=== PATIENT | female | born 1945 | race Caucasian/White ===

== ENCOUNTER → 2018-09-17 07:47 | Outpatient (CLI) | payer MEDICARE, OTHER, SELFPAY ==
--- NOTE | 2018-09-17 | DI.MG.S_ITS ---
BILATERAL DIGITAL SCREENING MAMMOGRAM 3D/2D WITH CAD: 09/17/2018 CLINICAL: Routine screening. Family history of breast cancer. Comparison is made to exams dated: 09/16/2017 mammogram, 12/12/2014 mammogram, and 12/14/2015 mammogram - [facility]. The tissue of both breasts is heterogeneously dense. This may lower the sensitivity of mammography. Current study was also evaluated with a Computer Aided Detection (CAD) system. No significant masses, calcifications, or other findings are seen in either breast. There has been no significant interval change. IMPRESSION: NEGATIVE There is no mammographic evidence of malignancy. A 1 year screening mammogram is recommended. This exam was interpreted at Station ID: [id number]. NOTE: For mammograms, a report in lay terms will be sent to the patient. Approximately 15% of breast malignancies will not be visualized mammographically. In the management of a palpable breast mass, a negative mammogram must not discourage biopsy of a clinically suspicious lesion. Electronically Signed By: Mini jim/raiza:09/17/2018 09:09:17 letter sent: Normal Exam ACR BI-RADS Category 1: Negative 3341F
== END ==
PROVIDERS: Family Provider Family Medicine; PCP Family Medicine; Visit Provider Family Medicine
DX: Z12.31 Encounter for screening mammogram for malignant neoplasm of breast (principal); Z80.3 Family history of malignant neoplasm of breast
CPT/HCPCS: 77063; 77067

== ENCOUNTER → 2018-09-22 11:26 | Outpatient (CLI) | payer MEDICARE, OTHER, SELFPAY ==
--- NOTE | 2018-09-22 | DI.RAD.S_ITS ---
PROCEDURE: XR FOOT LT MIN 3V INDICATIONS: LEFT FOOT PAIN TECHNIQUE: 3 views of the foot were acquired. COMPARISON: None. FINDINGS: Bones: No fractures or dislocations. No suspicious bony lesions. Soft tissues: No tibiotalar joint effusion. Achilles tendon appears normal. IMPRESSION: No trauma. Source of left foot pain is not seen. Dictated by: Moses Joseph M.D. on 09/22/2018 at 12:25 Approved by: Moess Joseph M.D. on 09/22/2018 at 12:25
== END ==
PROVIDERS: Family Provider Family Medicine; PCP Family Medicine; Visit Provider Family Medicine
DX: M79.672 Pain in left foot (principal)
CPT/HCPCS: 73630

== ENCOUNTER → 2018-12-14 09:46 | Outpatient (CLI) | payer MEDICARE, OTHER, SELFPAY | PROVIDERS: Family Provider Family Medicine; PCP Family Medicine; Visit Provider Family Medicine | DX: M81.0 Age-related osteoporosis without current pathological fracture (principal); Z78.0 Asymptomatic menopausal state; Z82.62 Family history of osteoporosis | CPT/HCPCS: 77080 ==

== ENCOUNTER → 2019-05-03 11:04 | Outpatient (CLI) | payer MEDICARE, OTHER, SELFPAY ==
--- NOTE | 2019-05-03 | DI.RAD.S_ITS ---
PROCEDURE: XR LUMBAR SPINE 2-3V INDICATIONS: BACK PAIN TECHNIQUE: 3 views of the lumbar spine were acquired. COMPARISON: [facility], , L-SPINE 2-3 VIEWS, 06/14/2014, 10:04. FINDINGS: Bones: 5 tdr-nxa-dziolen vertebrae are present. There is stable appearance of minimal grade 1 anterolisthesis of L4 on L5. There is also stable levocurvature of the lumbar spine centered at L2-3. No acute compression fractures. Multilevel spondylitic changes of the mid and lower lumbar spine appear slightly progressed compared to prior study. Moderate facet arthrosis. No suspicious bony lesions. Previously reported lucency near the tip of the right L2 transverse process is not visualized. Soft tissues: Overlying bowel gas pattern is normal. No suspicious soft tissue calcifications. IMPRESSION: 1. Lumbar spine without acute osseous abnormalities. 2. Mild interval progression of multilevel lumbar spondylitic changes. 3. Stable appearance of minimal grade 1 anterolisthesis of L4 on L5 as well as mild levocurvature of the lumbar spine centered at L2-3. Dictated by: Scott Eric M.D. on 05/03/2019 at 12:58 Approved by: Scott Eric M.D. on 05/03/2019 at 13:02
== END ==
PROVIDERS: Family Provider Family Medicine; PCP Family Medicine; Visit Provider Family Medicine
DX: M54.5 Low back pain (principal); M47.816 Spondylosis without myelopathy or radiculopathy, lumbar region; G89.29 Other chronic pain
CPT/HCPCS: 72100

== ENCOUNTER 2019-08-11 20:33 | Emergency (ER) | payer MEDICARE, OTHER, SELFPAY ==
[2019-08-11 20:45] VITALS: BP 170/81; PULSE 81; RESP 14; TEMP 38; O2SAT 98; BMI 25.7
--- NOTE | 2019-08-11 21:23 | DI.RAD.S_ITS ---
PROCEDURE: XR CHEST 2V INDICATIONS: cough TECHNIQUE: 2 views of the chest were acquired. COMPARISON: None. FINDINGS: Surgical changes and devices: None. Lungs and pleura: Lungs are clear. No pleural effusions or pneumothorax. Mediastinum: Mediastinal contours are normal. Heart size is normal. Bones and chest wall: No suspicious bony abnormalities. Soft tissues appear unremarkable. IMPRESSION: No acute pulmonary process. Dictated by: Nubia Gould M.D. on 08/11/2019 at 21:44 Approved by: Nubia Gould M.D. on 08/11/2019 at 21:44
--- NOTE | 2019-08-11 21:30 | PC.NURSE ---
To xray per wc.
--- NOTE | 2019-08-11 21:34 | PC.NURSE ---
Returned from xray per wc.
[2019-08-11 21:47] LABS: Influenza A - CEPHEID Flu A NEGATIVE (NEGATIVE); Influenza B - CEPHEID Flu B NEGATIVE (NEGATIVE)
[2019-08-11 22:00] VITALS: BP 140/85; PULSE 82; RESP 20; TEMP 37.7; O2SAT 96
[2019-08-11 23:32] VITALS: BP 167/77; PULSE 77; RESP 16; TEMP 37.3; O2SAT 99
--- NOTE | 2019-08-11 23:34 | PC.NURSE ---
Spoke with pt regarding wait. VS improving.Temp has come down.Pt voices desire to go home. Advised pt will speak with ED provider & the Charge Nurse. Pt is stable.No acute resp distress.Airway is stable.
--- NOTE | 2019-08-11 23:50 | ED.URI ---
HPI - URI/Sore Throat General Chief Complaint: Upper Respiratory Symptoms Stated Complaint: cough, congestion, fever Time Seen by Provider: 08/11/19 22:18 Source: patient Mode of arrival: Ambulatory Limitations: no limitations History of Present Illness HPI Narrative: 73-year-old woman with a history of a hyperlipidemia and osteoporosis presents with 3 days of cough and then 24 hours a fever. She is concerned about guaman virus and presents for testing as recommended by her primary care physician. She describes mild dyspnea, mild hoarseness, no orthopnea, no vomiting, diarrhea, abdominal pain. No recent travel or other exposures outside routine daily living Related Data Home Medications Medication Instructions Recorded Confirmed [CALCIUM] #0 10/17/10 01/28/18 [VITAMIN D] #0 10/17/10 01/28/18 FOLIC ACID/VIT A/VIT B1/VIT 1 tab PO Q DAY #0 05/13/11 01/28/18 (#MULTIVITAMIN) Fish Oil (#SALMON OIL) 1,000 mg PO EVERY OTHER DAY #0 05/13/11 01/28/18 alendronate 10 mg tablet 10 mg PO DAILY 01/28/18 01/28/18 atorvastatin 10 mg tablet 10 mg PO DAILY 01/28/18 01/28/18 Allergies Allergy/AdvReac Type Severity Reaction Status Date / Time codeine [CODEINE] Allergy Severe THROAT Verified 08/11/19 20:48 SWELLING Review of Systems Review of Systems Narrative: All systems reviewed and are unremarkable except as noted in HPI and below Patient History Medical History (Updated 08/12/19 @ 04:11 by Sheri Aguila MD) Hyperlipidemia (Acute) Social History Smoking Status: Never smoker Smoking Status: Never smoker alcohol intake frequency: 0-2 drinks per day Alcohol type: wine Substance Use Type: does not use Exam Narrative Exam Narrative: General: Healthy appearing, in no acute distress. Able to give a complete and coherent history. Well-nourished well-developed HEENT: Moist mucous membranes, normal sclera with reactive pupils, Neck: No JVD, supple Respiratory: Lungs are clear to auscultation, no wheezing no rales no rhonchi. Full and symmetrical air movement Cardiac: Regular rate and rhythm no murmurs no bruits Abdomen: Soft nontender good bowel tones, no flank pain Skin: Warm and dry, no rashes Neurologic: Grossly neurologically intact with no obvious asymmetries or abnormalities Extremities: No trauma, well perfused Psych: Cooperative, appropriate insight and affect Initial Vital Signs Initial Vital Signs: Vital Signs Temperature 100.4 F H 08/11/19 20:45 Pulse Rate 81 08/11/19 20:45 Respiratory Rate 14 08/11/19 20:45 Blood Pressure 170/81 H 08/11/19 20:45 Pulse Oximetry 98 08/11/19 20:45 Course Orders Ordered: ED Orders 08/11/19 21:05 Influenza A & B (PCR) Stat 08/11/19 21:23 Chest [XR chest 2V] Stat Vital Signs Vital signs: Vital Signs - 8 hr 08/11/19 20:45 08/11/19 22:00 08/11/19 23:32 Temperature 100.4 F H 99.8 F H 99.1 F Pulse Rate 81 82 77 Respiratory Rate 14 20 16 Blood Pressure 170/81 H Blood Pressure [Left Arm] 140/85 167/77 H Pulse Oximetry 98 96 99 MDM - URI/Sore Throat Medical Records Attestation: I reviewed the patient's medical records. Lab Data Attestation: I reviewed the patient's lab results. Lab results narrative: Flu a and B are negative. Guaman virus has been ordered Labs: Lab Results 08/11/19 Range/Units 21:05 Influenza A (RT-PCR) Flu a negative (NEGATIVE) Influenza B (RT-PCR) Flu b negative (NEGATIVE) Imaging Data Chest x-ray: Radiologist's Impression: IMPRESSION: No acute pulmonary process. Dictated by: Nubia Gould M.D. on 08/11/2019 at 21:44 MDM Narrative Medical decision making narrative: Upper respiratory infection without signs or symptoms of acute respiratory distress or impending respiratory failure. Recommended self isolation until all symptoms are completely resolved for over 72 hours. Safe for home discharge Discharge Plan Departure Patient Disposition: Home Clinical Impression: Upper respiratory infection Qualifiers: URI type: unspecified viral URI Qualified Code(s): J06.9 - Acute upper respiratory infection, unspecified Discharge Date/Time: 08/12/19 00:05 Instructions: DI for Viral Upper Respiratory Infection -- Adult Activity Restrictions/Additional Instructions: Thank you for coming in tonight I very much appreciate your patience in waiting Your influenza swab is negative. You do not have an obvious pneumonia on your chest x-ray. Your clinical exam suggests a simple viral respiratory infection and I expect he will start feeling better within the next 3-4 days. We have sent a guaman virus test. It will likely take a number of days to return. In the meantime, please try to stay at home to avoid exposing others to what ever virus it is that you have. Make sure that you are using ibuprofen or Tylenol to help with the aches pains and fevers. Feel free to use [id number] cough medicine to control the cough symptoms. I hope you heal quickly Prescriptions: No Action atorvastatin 10 mg tablet 10 mg PO DAILY RF: 0 alendronate 10 mg tablet 10 mg PO DAILY RF: 0 [CALCIUM] Qty: 0 RF: 0 [VITAMIN D] Qty: 0 RF: 0 Fish Oil (#SALMON OIL) 1,000 mg PO EVERY OTHER DAY Qty: 0 RF: 0 FOLIC ACID/VIT A/VIT B1/VIT (#MULTIVITAMIN) 1 tab PO Q DAY Qty: 0 RF: 0 Referrals: Jacoby Jamison MD [Primary Care Provider] -
[2019-08-17 09:00] LABS: COVID19 Sendout Not Detected (Not Detected)
== END 2019-08-12 00:05 | disposition home or self-care (01) ==
PROVIDERS: Emergency Provider Emergency Medicine; Family Provider Family Medicine; PCP Family Medicine
DX: Z03.818 Encounter for observation for suspected exposure to other biological agents ruled out (principal); J06.9 Acute upper respiratory infection, unspecified; E78.5 Hyperlipidemia, unspecified
CPT/HCPCS: 71046; 87502; 99282; 99283; DELETED

== ENCOUNTER → 2020-04-14 07:51 | Outpatient (CLI) | payer MEDICARE, OTHER, SELFPAY ==
--- NOTE | 2020-04-14 | DI.MG.S_ITS ---
BILATERAL DIGITAL SCREENING MAMMOGRAM 3D/2D WITH CAD: 04/14/2020 CLINICAL: Routine screening. Family history of breast cancer. Comparison is made to exams dated: 09/17/2018 mammogram, 09/16/2017 mammogram, and 12/14/2015 mammogram - . The tissue of both breasts is heterogeneously dense. This may lower the sensitivity of mammography. Current study was also evaluated with a Computer Aided Detection (CAD) system. There is a benign calcification in both breasts. No significant masses, calcifications, or other findings are seen in either breast. There has been no significant interval change. IMPRESSION: BENIGN There is no mammographic evidence of malignancy. A 1 year screening mammogram is recommended. This exam was interpreted at Station ID: [id number]. NOTE: For mammograms, a report in lay terms will be sent to the patient. Approximately 15% of breast malignancies will not be visualized mammographically. In the management of a palpable breast mass, a negative mammogram must not discourage biopsy of a clinically suspicious lesion. Electronically Signed By: Darinel Quinonez acr/penrad:04/15/2020 18:24:57 letter sent: Normal Exam ACR BI-RADS Category 2: Benign Finding(s) 3342F
== END ==
PROVIDERS: Family Provider Family Medicine; PCP Family Medicine; Referring Provider Family Medicine; Visit Provider Family Medicine
DX: Z12.31 Encounter for screening mammogram for malignant neoplasm of breast (principal)
CPT/HCPCS: 77063; 77067

== ENCOUNTER → 2020-07-03 09:49 | Outpatient (CLI) | payer MEDICARE, OTHER, SELFPAY ==
--- NOTE | 2020-07-03 | DI.RAD.S_ITS ---
PROCEDURE: XR LUMBAR SPINE 2-3V INDICATIONS: LEFT LOW BACK PAIN TECHNIQUE: 3 views of the lumbar spine were acquired. COMPARISON: [facility], CR, XR LUMBAR SPINE 2-3V, 05/03/2019, 11:17. FINDINGS: Bones: No fracture. Multilevel degenerative endplate sclerosis and spurring. Diffuse facet arthropathy. Grade 1 anterolisthesis of L4 on L5. Diffuse mild to moderate disc space narrowing throughout the lumbar spine. There is levocurvature. Soft tissues: Overlying bowel gas pattern is normal. No suspicious soft tissue calcifications. IMPRESSION: Multilevel spondylosis and facet arthropathy without interval change since 05/03/19 Levocurvature. Dictated by: Nitish Dove M.D. on 07/03/2020 at 11:32 Approved by: Nitish Dove M.D. on 07/03/2020 at 11:33
== END ==
PROVIDERS: Family Provider Family Medicine; PCP Family Medicine; Referring Provider Family Medicine; Visit Provider Family Medicine
DX: M54.5 Low back pain (principal); M47.816 Spondylosis without myelopathy or radiculopathy, lumbar region
CPT/HCPCS: 72100

== ENCOUNTER → 2020-10-31 18:51 | Outpatient (CLI) | payer MEDICARE, OTHER, SELFPAY | PROVIDERS: Family Provider Family Medicine; PCP Family Medicine; Visit Provider Student in an Organized Health Care Education/Training Program | DX: M79.89 Other specified soft tissue disorders (principal) | CPT/HCPCS: 87070; 87075; 87077; 87147; 87186; 87205 ==

== ENCOUNTER → 2021-02-05 14:21 | Outpatient (CLI) | payer MEDICARE, OTHER, SELFPAY ==
--- NOTE | 2021-02-05 | DI.RAD.S_ITS ---
PROCEDURE: XR FOOT LT MIN 3V INDICATIONS: left forefoot pain, redness and swelling TECHNIQUE: 3 views of the foot were acquired. COMPARISON: [facility], CR, XR FOOT LT MIN 3V, 09/22/2018, 11:27. FINDINGS: Bones: No fractures or dislocations. No suspicious bony lesions. Soft tissues: No tibiotalar joint effusion. Achilles tendon appears normal. IMPRESSION: No acute abnormality of the left foot. Dictated by: Darinel Quinonez M.D. on 02/05/2021 at 18:33 Approved by: Darinel Quinonez M.D. on 02/05/2021 at 18:35
== END ==
PROVIDERS: Family Provider Family Medicine; PCP Family Medicine; Referring Provider Family Medicine; Visit Provider Family Medicine
DX: M79.672 Pain in left foot (principal)
CPT/HCPCS: 73630

== ENCOUNTER → 2021-04-17 08:39 | Outpatient (CLI) | payer MEDICARE, OTHER, SELFPAY ==
--- NOTE | 2021-04-17 | DI.MG.S_ITS ---
BILATERAL DIGITAL SCREENING MAMMOGRAM 3D/2D WITH CAD: 04/17/2021 CLINICAL: Routine screening. Family history of breast cancer. Comparison is made to exams dated: 04/14/2020 mammogram, 09/17/2018 mammogram, and 09/16/2017 mammogram - [facility]. The tissue of both breasts is heterogeneously dense. This may lower the sensitivity of mammography. Current study was also evaluated with a Computer Aided Detection (CAD) system. There is a benign calcification in both breasts. No significant masses, calcifications, or other findings are seen in either breast. There has been no significant interval change. IMPRESSION: BENIGN There is no mammographic evidence of malignancy. A 1 year screening mammogram is recommended. This exam was interpreted at Station ID: [id number]. NOTE: For mammograms, a report in lay terms will be sent to the patient. Approximately 15% of breast malignancies will not be visualized mammographically. In the management of a palpable breast mass, a negative mammogram must not discourage biopsy of a clinically suspicious lesion. Electronically Signed By: Kaz kennedy/raiza:04/17/2021 09:00:05 letter sent: Normal Exam ACR BI-RADS Category 2: Benign Finding(s) 3342F
== END ==
PROVIDERS: Family Provider Family Medicine; PCP Family Medicine; Referring Provider Family Medicine; Visit Provider Family Medicine
DX: Z12.31 Encounter for screening mammogram for malignant neoplasm of breast (principal); Z80.3 Family history of malignant neoplasm of breast
CPT/HCPCS: 77063; 77067

== ENCOUNTER → 2021-05-10 09:19 | Outpatient (CLI) | payer MEDICARE, OTHER, SELFPAY ==
--- NOTE | 2021-05-10 | DI.RAD.S_ITS ---
PROCEDURE: XR DEXA AXIAL SKELETON INDICATIONS: Asymptomatic menopausal state COMPARISON: [facility], CR, XR DEXA AXIAL SKELETON, 12/14/2018, 10:16. FINDINGS: This blank DEXA report has been sent in error by the PACS system. The correct and complete report will be forthcoming in 1-2 days. Thank you for your patience and understanding. Dictated by: Nicci Guzmán MD, PhD on 05/10/2021 at 14:37 Approved by: Ncici Guzmán MD, PhD on 05/10/2021 at 14:37
== END ==
PROVIDERS: Family Provider Family Medicine; PCP Family Medicine; Referring Provider Family Medicine; Visit Provider Family Medicine
DX: M81.0 Age-related osteoporosis without current pathological fracture (principal); Z78.0 Asymptomatic menopausal state; Z82.62 Family history of osteoporosis
CPT/HCPCS: 77080

== ENCOUNTER → 2021-09-06 09:37 | Outpatient (CLI) | payer MEDICARE, OTHER, SELFPAY ==
--- NOTE | 2021-09-06 | DI.RAD.S_ITS ---
PROCEDURE: XR WRIST LT MIN 3V INDICATIONS: LEFT WRIST PAIN TECHNIQUE: 4 views of the wrist were acquired. COMPARISON: [facility], , WRIST MINIMUM 3 VIEWS LEFT, 06/03/2008, 15:06. FINDINGS: Bones: Healed fracture deformity of the distal radius. Lucencies within the lunate and triquetrum, which may reflect fibrocystic change. Scaphoid view: Intact. Soft tissues: No suspicious soft tissue calcifications. IMPRESSION: No acute osseous abnormality. Dictated by: Lazaro Dunn M.D. on 09/06/2021 at 10:49 Approved by: Lazaro Dunn M.D. on 09/06/2021 at 10:50
== END ==
PROVIDERS: Family Provider Family Medicine; PCP Family Medicine; Referring Provider Family Medicine; Visit Provider Family Medicine
DX: M25.532 Pain in left wrist (principal)
CPT/HCPCS: 73110

== ENCOUNTER → 2021-09-11 12:05 | Outpatient (CLI) | payer MEDICARE, OTHER, SELFPAY ==
--- NOTE | 2021-09-11 | DI.MRI.S_ITS ---
PROCEDURE: MR HEAD/BRAIN WO/W CON INDICATIONS: Other amnesia TECHNIQUE: Noncontrast axial T1 spin echo, axial T2 fast spin echo, sagittal and axial FLAIR, coronal T2 fast spin echo, axial gradient echo, axial diffusion and ADC through the brain. After the administration of contrast, axial and coronal T1 spin echo with fat saturation through the brain. COMPARISON: None. FINDINGS: Image quality: Excellent. CSF spaces: Basal cisterns are patent. Mild chronic, simple appearing subdural hygromas can be seen, right larger than left, with a maximal thickness of 11 mm. Ventricles are normal in size and shape. Brain: No midline shift. No intracranial bleeds or masses. No abnormal intracranial enhancement. There is cerebral volume loss for age. There is periventricular white matter chronic small vessel ischemic change. The brainstem appears normal. Diffusion-weighted images demonstrate no acute ischemic insults. No chronic ischemic insults. Normal intravascular flow voids are present. Skull and face: Calvarial marrow is normal in signal. Orbits appear normal. Sinuses: Sinuses and mastoids appear clear. IMPRESSION: Brain MRI within normal limits for age, with brain parenchymal volume loss and chronic small vessel ischemic change. Bilateral mild chronic subdural hygromas can be seen. No findings of acute or subacute infarction can be seen. No masses or abnormal enhancement can be seen. Dictated by: Ant Gould M.D. on 09/11/2021 at 12:09 Approved by: Ant Gould M.D. on 09/11/2021 at 12:11
== END ==
PROVIDERS: Family Provider Family Medicine; PCP Family Medicine; Referring Provider Family Medicine; Visit Provider Family Medicine
DX: R41.3 Other amnesia (principal); G96.08 Other cranial cerebrospinal fluid leak
CPT/HCPCS: 70553

== ENCOUNTER → 2021-10-03 07:44 | Outpatient (CLI) | payer MEDICARE, OTHER, SELFPAY ==
--- NOTE | 2021-11-28 08:17 | PM.CARDMON.1 ---
Administrative Nursing Supervisor Report Referral & Results Date Patient Seen: 10/03/21 Requesting provider: Jacoby Jamison Indication: Syncope Duration of monitoring (days): 14 Diary information: There was 1 patient triggered event associated with sinus rhythm Data: Minimum heart rate identified was 50 beats per minute at 03:14 on 10/11/2021 Maximum sinus heart rate was 154 beats per minute at 10:54 on 10/10/2021 Maximum overall heart rate was 190 beats per minute at 17:22 on 10/03/2021 during a run of SVT Less than 1% of identified beats were ventricular or supraventricular ectopic in origin, which would classify them as rare. There were 13 runs of SVT with the fastest being a 9 beat run at a rate of 190 beats per minute, the longest lasting 12 beats at a rate of 114 beats per minute which suggest possible atrial tachycardia rather than true SVT There were no pauses of 3 seconds or longer or episodes of atrial fibrillation identified on this study Impression: Essentially normal 14 day hospital monitor demonstrating very rare very brief runs of SVT but otherwise unremarkable. No etiology for syncope identified on this study
== END ==
PROVIDERS: Family Provider Family Medicine; PCP Family Medicine; Referring Provider Family Medicine; Visit Provider Family Medicine
DX: R55 Syncope and collapse (principal)
CPT/HCPCS: 93246; 93248

== ENCOUNTER → 2021-11-11 08:06 | Outpatient (CLI) | payer MEDICARE, OTHER, SELFPAY ==
--- NOTE | 2021-11-11 08:07 | DI.ECHO.S_ITS ---
[facility] +---------+ : : [address] : : : : [id number] : : : : Phone: [phone]+ Echocardiogram Report + + :Name: GAURAV SANTANA Study Date: 11/11/2021 Height: 63.5 in: :[facility] ReadingLocation: Weight: 145 lb : : Gender: Female BSA: 1.7 m2 : :: 1945 Age: 76 yrs BP: 151/83 mmHg: :Reason For Study: SYNCOPE AND COLLAPSE : :Ordering Physician: CLARE, : :GABRIEL Performed By: Shalonda Seaman : :Referring: GABRIEL SPARKS : + + Interpretation Summary The ejection fraction is estimated to be 55-60%. Diastolic parameters suggest probable normal left ventricular diastolic function and normal filling pressures. The right ventricle is normal in size and function. No significant valvular abnormalities. Unable to estimate PASP. Procedure: A two-dimensional transthoracic echocardiogram with color flow and Doppler was performed. The study quality was technically good. There is no prior echocardiogram noted for this patient. The patient was in sinus rhythm with heart rates between 61-76 bpm during the exam. Left Ventricle: The left ventricle is normal in size and wall thickness. The ejection fraction is estimated to be 55-60%. Diastolic parameters suggest probable normal left ventricular diastolic function and normal filling pressures. Right Ventricle: The right ventricle is normal in size and function. Atria: The left atrial size is normal. Right atrial size is normal. Mitral Valve: The mitral valve leaflets appear mildly thickened, but open well. There is trace mitral regurgitation. Aortic Valve: The aortic valve is trileaflet. The aortic valve opens well. There is no aortic valve stenosis. No aortic regurgitation is present. Tricuspid Valve: The tricuspid valve is normal in structure and function. There is trace tricuspid regurgitation. Pulmonic Valve: The pulmonic valve leaflets are thin and pliable; valve motion is normal. There is mild pulmonic regurgitation. Great Vessels: The aortic root is normal size. The dimensions of the ascending aorta are normal. The IVC is of normal diameter and collapses greater than 50% with a sniff. This suggests a low right atrial pressure of 3 mm Hg. Pericardium/ Pleura There is no pericardial effusion. There is no pleural effusion. MMode/2D Measurements & Calculations LVIDd: 5.3 cm LVOT diam: 2.1 cm LVIDs: 3.9 cm Ao root diam: 3.3 cm FS: 26.7 % asc Aorta Diam: 3.2 cm IVSd: 0.80 cm Ao Arch Diam (Prox Trans): 2.9 cm LVPWd: 0.73 cm LV bone. diameter/BSA (cm/m^2): 3.1 LV sys. diameter/BSA (cm/m^2): 2.3 LA A2 area: 16.2 cm2 RA long axis: 4.7 cm LA A4 area: 17.9 cm2 RA area: 15.6 cm2 LA length (vol): 4.9 cm RA vol: 44.4 ml LA vol: 50.0 ml RA : 26.2 ml/m2 LA vol index: 29.5 ml/m2 IVC diam: 0.86 cm RVD1 (basal): 3.6 cm RVD2 (mid): 2.6 cm TAPSE: 2.4 cm Doppler Measurements & Calculations Ao V2 max: 107.3 cm/sec LVOT Max Alex: 75.7 cm/sec Ao V2 mean: 84.0 cm/sec LV V1 max P.3 mmHg Ao max P.6 mmHg LV V1 VTI: 18.1 cm Ao mean P.1 mmHg BLANCA(I,D): 2.3 cm2 Ao V2 VTI: 25.9 cm BLANCA(V,D): 2.3 cm2 sev ratio: 0.70 BLANCA indexed to BSA (cm^2/m^2): 1.4 MV E max alex: 54.9 cm/sec TR max alex: 225.5 cm/sec MV A max alex: 77.8 cm/sec TR max P.3 mmHg MV E/A: 0.71 PA V2 max: 90.7 cm/sec Med Peak E' Alex: 4.4 cm/sec PA V2 mean: 57.9 cm/sec E/E' med: 12.5 PA mean P.6 mmHg Lat Peak E' Alex: 9.6 cm/sec PA pr(Accel): 24.2 mmHg E/E' lat: 5.7 E/e' average: 9.1 MV dec time: 0.24 sec SV(LVOT): 60.2 ml Reading Physician:01:33 PM
== END ==
PROVIDERS: Family Provider Family Medicine; PCP Family Medicine; Referring Provider Family Medicine; Visit Provider Family Medicine
DX: R55 Syncope and collapse (principal); I37.1 Nonrheumatic pulmonary valve insufficiency
CPT/HCPCS: 93306

== ENCOUNTER → 2022-05-06 11:15 | Outpatient (CLI) | payer MEDICARE, OTHER, SELFPAY ==
--- NOTE | 2022-05-06 | DI.MG.S_ITS ---
BILATERAL DIGITAL SCREENING MAMMOGRAM 3D/2D WITH CAD: 05/06/2022 CLINICAL: Routine screening. Family history of breast cancer. Comparison is made to exams dated: 04/17/2021 mammogram, 04/14/2020 mammogram, 09/17/2018 mammogram, and 09/16/2017 mammogram - [facility]. Both breasts are heterogeneously dense, which may obscure small masses (category c / 51-75% glandular tissue). Current study was also evaluated with a Computer Aided Detection (CAD) system. There is a possible developing asymmetry in the left breast anterior depth medial region seen on the craniocaudal view only. No other significant masses, calcifications, or other findings are seen in either breast. IMPRESSION: INCOMPLETE: NEEDS ADDITIONAL IMAGING EVALUATION The possible developing asymmetry in the left breast is indeterminate. Additional views with possible ultrasound are recommended. Based on the Tyrer Cuzick model (a risk assessment model) the patient's lifetime risk is 6.7% and her 10 year risk is 6.1%. According to the ACR, ACS, and NCCN guidelines, an annual breast MRI exam along with mammogram is recommended if the patient's lifetime risk is 20% or greater. This exam was interpreted at Station ID: [id number]. NOTE: For mammograms, a report in lay terms will be sent to the patient. Approximately 15% of breast malignancies will not be visualized mammographically. In the management of a palpable breast mass, a negative mammogram must not discourage biopsy of a clinically suspicious lesion. Electronically Signed By: Jony Canada M.D. [facility]/:05/06/2022 13:52:37 letter sent: Additional Imaging Needed ACR BI-RADS Category 0: Incomplete 3340F
== END ==
PROVIDERS: Family Provider Family Medicine; PCP Family Medicine; Referring Provider Family Medicine; Visit Provider Family Medicine
DX: Z12.31 Encounter for screening mammogram for malignant neoplasm of breast (principal); Z80.3 Family history of malignant neoplasm of breast
CPT/HCPCS: 77063; 77067

== ENCOUNTER → 2022-06-18 10:13 | Outpatient (CLI) | payer MEDICARE, OTHER, SELFPAY ==
--- NOTE | 2022-06-18 | DI.MG.S_ITS ---
UNILATERAL LEFT DIGITAL DIAGNOSTIC MAMMOGRAM 3D/2D WITH ADDITIONAL VIEWS: 06/18/2022 CLINICAL: Additional evaluation requested from prior study. Comparison is made to exams dated: 05/06/2022 mammogram, 04/17/2021 mammogram, and 04/14/2020 mammogram - [facility]. The left breast is heterogeneously dense, which may obscure small masses (category c / 51-75% glandular tissue). The possible asymmetry in the left breast anterior depth medial region seen on the craniocaudal view only is not seen in additional views. No other significant masses or calcifications are seen in the breast. IMPRESSION: BENIGN The left breast asymmetry seen on the screening mammogram likely respresents superimposed fibroglandular tissue and is benign. There is no mammographic evidence of malignancy. A 1 year screening mammogram is recommended. Based on the Tyrer Cuzick model (a risk assessment model) the patient's lifetime risk is 6.7% and her 10 year risk is 6.1%. According to the ACR, ACS, and NCCN guidelines, an annual breast MRI exam along with mammogram is recommended if the patient's lifetime risk is 20% or greater. This exam was interpreted at Station ID: [id number]. NOTE: For mammograms, a report in lay terms will be sent to the patient. Approximately 15% of breast malignancies will not be visualized mammographically. In the management of a palpable breast mass, a negative mammogram must not discourage biopsy of a clinically suspicious lesion. Electronically Signed By: Mini Fernando M.D. lk/:06/18/2022 10:29:47 letter sent: Normal Exam ACR BI-RADS Category 2: Benign Finding(s) 3342F
== END ==
PROVIDERS: Family Provider Family Medicine; PCP Family Medicine; Referring Provider Family Medicine; Visit Provider Family Medicine
DX: N64.89 Other specified disorders of breast (principal); R92.8 Other abnormal and inconclusive findings on diagnostic imaging of breast
CPT/HCPCS: 77065; G0279

== ENCOUNTER 2023-04-02 09:27 | Emergency (ER) | payer MEDICARE, OTHER, SELFPAY ==
--- NOTE | 2023-04-02 09:32 | DI.RAD.S_ITS ---
PROCEDURE: XR CHEST 1V INDICATIONS: chest pain TECHNIQUE: One view of the chest was acquired. COMPARISON: [facility], CR, XR CHEST 2V, 08/11/2019, 21:18. FINDINGS: Surgical changes and devices: None. Lungs and pleura: Minimal appearance of increased vascularity. Mediastinum: Mediastinal contours appear normal. Heart size is normal. Bones and chest wall: No suspicious bony lesions. Overlying soft tissues appear unremarkable. IMPRESSION: Minimal increased vascularity suggestive of edema. Dictated by: Nubia Gould M.D. on 04/02/2023 at 11:12 Approved by: Nubia Gould M.D. on 04/02/2023 at 11:12
[2023-04-02 09:37] VITALS: BP 177/77; PULSE 80; RESP 18; TEMP 36.2; O2SAT 98; BMI 26.6
--- NOTE | 2023-04-02 09:37 | DI.RAD.S_ITS ---
PROCEDURE: XR SHOULDER RT MIN 2V INDICATIONS: fall, right shoulder pain TECHNIQUE: 3 views of the shoulder were acquired. COMPARISON: None. FINDINGS: Bones: No fractures or dislocations. No suspicious bony lesions. Visualized ribs appear intact. Soft tissues: No suspicious soft tissue calcifications. IMPRESSION: No visualized acute fracture or dislocation. However, if clinical concern and/or pain persist, short interval imaging followup in 7-10 days is recommended, as occult injury cannot be definitively excluded. Dictated by: Nubia Gould M.D. on 04/02/2023 at 11:13 Approved by: Nubia Gould M.D. on 04/02/2023 at 11:13
--- NOTE | 2023-04-02 09:41 | DI.CT.S_ITS ---
PROCEDURE: CT HEAD/BRAIN WO CON INDICATIONS: syncope, dizziness, dementia TECHNIQUE: Noncontrast 4.5 mm thick angled axial sections acquired from the foramen magnum to the vertex, with coronal and sagittal reformats. For radiation dose reduction, the following was used: automated exposure control, adjustment of mA and/or kV according to patient size. COMPARISON: MR, MR HEAD/BRAIN WO/W CON, 09/11/2021, 12:24. [facility], CT, CT ANGIO HEAD AND NECK, 04/02/2023, 10:16. FINDINGS: Image quality: Excellent. CSF spaces: Basal cisterns are patent. No extra-axial fluid collections. The ventricles are symmetric in size and shape. Brain: No intracranial bleeds or masses. Low-attenuation bilateral subdural fluid collections are present slightly more prominent on the right. These are unchanged compared to prior exam and consistent with chronic subdural hygromas. No acute hemorrhage. There is cerebral volume loss for age, with resultant ventricular and sulcal prominence. There are periventricular and deep white matter chronic small vessel ischemic changes. There is intracranial internal carotid artery atherosclerosis. Skull and face: Calvarium and visualized facial bones appear intact, without suspicious lesions. Sinuses: Visualized sinuses and mastoids are clear. IMPRESSION: 1. No acute intracranial process. 2. Moderate atrophy and chronic microvascular ischemic changes. Dictated by: Nubia Gould M.D. on 04/02/2023 at 11:09 Approved by: Nubia Gould M.D. on 04/02/2023 at 11:12
--- NOTE | 2023-04-02 09:41 | DI.CT.S_ITS ---
PROCEDURE: CT ANGIO HEAD AND NECK INDICATIONS: syncope, dizziness, dementia TECHNIQUE: After the administration of intravenous contrast, 1 mm thick sections acquired from the aortic arch through the [place] of [place]. 3-dimensional wjkgatq-ovqrtzxmp-hseobwqmof (MIP) and/or volume rendering reformats were acquired of the central intracranial vasculature and neck separately. For radiation dose reduction, the following was used: automated exposure control, adjustment of mA and/or kV according to patient size. COMPARISON: [facility], CT, CT HEAD/BRAIN WO CON, 04/02/2023, 10:16. FINDINGS: Image quality: Diagnostic. BRAIN: Please see separately dictated CT brain report of 04/02/2023. HEAD CT ANGIOGRAPHY: Anterior circulation: Intracranial internal carotid arteries are normal in size and flow. The flow within the paired anterior cerebral arteries is normal and symmetric. The flow within the middle cerebral arteries is normal and symmetric. The anterior communicating artery is seen. No aneurysms are seen. Posterior circulation: There is a slight right vertebral artery dominance. Visualized portions of the vertebral arteries demonstrate normal caliber, and join to form a normal appearing basilar artery. Flow within the posterior cerebral arteries is normal and symmetric. No aneurysms are seen. NECK CT ANGIOGRAPHY: Carotid system: The great vessels demonstrate a conventional anatomy as they arise from the aortic arch. The origins of the common carotid arteries appear patent. The common carotid arteries demonstrate normal caliber and courses. The bifurcation regions are both widely patent. The internal carotid arteries demonstrate normal calibers and courses. Posterior circulation: The origins of the vertebral arteries both appear widely patent. The more superior extracranial portions of both vertebral arteries also demonstrate normal courses and calibers. They join to form a normal appearing basilar artery. Soft tissues: Low-attenuation foci are present within the thyroid bilaterally. No priors are available for comparison. Bones: No suspicious bony lesions. Visualized cervical spine appears normally aligned. IMPRESSION: No areas of hemodynamically significant stenosis, vascular occlusion or aneurysmal dilation within the anterior circulation. No areas of hemodynamically significant stenosis, vascular occlusion or aneurysmal dilation within the posterior circulation. No areas of hemodynamically significant stenosis, vascular occlusion or aneurysmal dilation within the neck vasculature. Low-attenuation thyroid ultrasound foci without priors for comparison. Thyroid ultrasound may be obtained on a nonemergent basis for further evaluation as clinically indicated. Any quantitative measurements of stenosis were performed using NASCET criteria. Dictated by: Nubia Gould M.D. on 04/02/2023 at 11:16 Approved by: Nubia Gould M.D. on 04/02/2023 at 11:23
[2023-04-02 09:56] LABS: Add Manual Diff / Slide Review NO; Basophils Absolute Auto 100 /uL (0-100); Basophils Percent Auto 0.6 % (0-2); Eosinophils Absolute Auto 0 /uL (0-450); Eosinophils Percent Auto 0.4 % (2-4); Hematocrit 44.1 % (36-46); Hemoglobin 14.8 g/dL (12.0-16.0); Lymphocytes Absolute Auto 900 /uL (1100-4500); Lymphocytes Percent Auto 9.8 % (25-40); Mean Corpuscular HGB Conc 33.6 % (30-36); Mean Corpuscular Hemoglobin 32.7 PG (26-34); Mean Corpuscular Volume 97.4 fL (80-100); Monocytes Absolute Auto 700 /uL (0-900); Monocytes Percent Auto 7.2 % (3-14); Neutrophils Absolute Auto 7900 /uL (1500-7000); Platelet Count 290 X10^3/uL (150-400); Red Blood Cell Count 4.52 X10^6/uL (4.0-5.2); White Blood Cell Count 9.6 X10^3/uL (4.5-11.0)
[2023-04-02 10:03] LABS: Prothrombin Time 11.1 SECONDS (10.1-12.7)
[2023-04-02 10:05] LABS: Alanine Aminotransferase 23 IU/L (<35); Albumin Globulin Ratio 1.4 (1.0-2.8); Alkaline Phosphatase 86 U/L (38-126); Aspartate Aminotransferase 28 IU/L (14-36); BUN Creatinine Ratio 34.8 (6-22); Bilirubin Total 0.4 mg/dL (0.2-1.3); Blood Urea Nitrogen 23 mg/dL (7-17); Calcium 9.1 mg/dL (8.4-10.2); Carbon Dioxide 30 mmol/L (22-32); Chloride 101 mmol/L (98-107); Creatine Kinase 74 U/L (30-135); Estimated Glomerular Filt Rate > 60 mL/min (>60); Globulin 2.8 g/dL (1.7-4.1); Glucose 104 mg/dL (80-110); HEMOLYSIS < 15 (0-50); Lipase 62 U/L (23-300); Magnesium 2.2 mg/dL (1.6-2.3); PTT Partial Thromboplastin Tim 30 SECONDS (26-36); Potassium 4.6 mmol/L (3.4-5.1); Sodium 137 mmol/L (137-145); Total Protein 6.8 g/dL (6.3-8.2)
--- NOTE | 2023-04-02 10:13 | DI.CT.S_ITS ---
PROCEDURE: CT CERVICAL SPINE WO CON INDICATIONS: Fall/injury TECHNIQUE: Noncontrast 3 mm thick sections acquired from the skull base to the T4 level. Sagittal and coronal reformats were then constructed. For radiation dose reduction, the following was used: automated exposure control, adjustment of mA and/or kV according to patient size. COMPARISON: None. FINDINGS: Image quality: Excellent. Bones: No fractures or dislocations. Visualized superior ribs are intact. Multilevel degenerative changes. Soft tissues: Prevertebral soft tissues are normal in thickness. No paravertebral hematomas. No apical pneumothoraces. IMPRESSION: No visualized fracture. Dictated by: Nubia Gould M.D. on 04/02/2023 at 11:13 Approved by: Nubia Gould M.D. on 04/02/2023 at 11:15
[2023-04-02 10:16] LABS: Troponin I < 0.012 ng/mL (0.01-0.034)
--- NOTE | 2023-04-02 10:26 | ED.SYNCOPE ---
HPI - Syncope General Chief Complaint: Syncope Stated Complaint: sent by [facility], fall T-1 shoulder injury, fainting Time Seen by Provider: 04/02/23 10:06 Source: patient and family Mode of arrival: Ambulatory Limitations: no limitations Related Data Home Medications Medication Instructions Recorded Confirmed [CALCIUM] ##0 10/17/10 10/31/20 [VITAMIN D] ##0 10/17/10 10/31/20 FOLIC ACID/VIT A/VIT B1/VIT 1 tab PO Q DAY ##0 05/13/11 10/31/20 (#MULTIVITAMIN) Fish Oil (#SALMON OIL) 1,000 mg PO EVERY OTHER DAY ##0 05/13/11 10/31/20 alendronate 10 mg tablet 10 mg PO DAILY 01/28/18 10/31/20 atorvastatin 10 mg tablet 10 mg PO DAILY 01/28/18 10/31/20 Allergies Allergy/AdvReac Type Severity Reaction Status Date / Time codeine [CODEINE] Allergy Severe THROAT Verified 10/31/20 18:13 SWELLING Patient History Medical History Hyperlipidemia Social History Smoking Status: Never smoker Smoking Status: Never smoker alcohol intake frequency: 0-2 drinks per day Alcohol type: wine Substance Use Type: does not use Exam Initial Vital Signs Initial Vital Signs: Vital Signs Temperature 97.2 F L 04/02/23 09:37 Pulse Rate 80 04/02/23 09:37 Respiratory Rate 18 04/02/23 09:37 Blood Pressure 177/77 H 04/02/23 09:37 Pulse Oximetry 98 04/02/23 09:37 Oxygen Delivery Method Room Air 04/02/23 09:37 Course Orders Ordered: ED Orders 04/02/23 09:32 XR chest 1V Stat EKG-12 Lead Stat 04/02/23 09:37 XR shoulder RT min 2V Stat 04/02/23 09:41 CT angio head and neck Stat CT head/brain wo con Stat 04/02/23 09:46 Complete Blood Count AUTO DIFF Stat Comprehensive Metabolic Panel Stat Lipase Stat Magnesium Stat PTT Partial Thromboplastin [place] Stat Prothrombin Time INR Stat Troponin & CK Cardiac Panel Stat 04/02/23 10:13 CT cervical spine wo con Stat Discontinued Medications Aspirin (Aspirin 81 Mg Chew Tab) 324 mg PO NOW ONE Stop: 04/02/23 09:33 Vital Signs Vital signs: Vital Signs - 8 hr 04/02/23 09:37 Temperature 97.2 F L Pulse Rate 80 Respiratory Rate 18 Blood Pressure 177/77 H Pulse Oximetry 98 Oxygen Delivery Method Room Air MDM - Syncope Lab Data 04/02/23 09:46 04/02/23 09:46 Labs: Lab Results 04/02/23 Range/Units 09:46 WBC 9.6 (4.5-11.0) X10^3/uL RBC 4.52 (4.0-5.2) X10^6/uL Hgb 14.8 (12.0-16.0) g/dL Hct 44.1 (36-46) % MCV 97.4 (80-100) fL MCH 32.7 (26-34) PG MCHC 33.6 (30-36) % RDW 14.0 (11.6-14.8) % Plt Count 290 (150-400) X10^3/uL Neut % (Auto) 82.0 H (50-75) % Lymph % (Auto) 9.8 L (25-40) % [place] % (Auto) 7.2 (3-14) % Eos % (Auto) 0.4 L (2-4) % Baso % (Auto) 0.6 (0-2) % Neut # (Auto) 7900 H (9845-9583) /uL Lymph # (Auto) 900 L (8621-7284) /uL [place] # (Auto) 700 (0-900) /uL Eos # (Auto) 0 (0-450) /uL Baso # (Auto) 100 (0-100) /uL PT 11.1 (10.1-12.7) SECONDS INR 1.0 (0.9-1.3) APTT 30 (26-36) SECONDS Sodium 137 (137-145) mmol/L Potassium 4.6 (3.4-5.1) mmol/L Chloride 101 (98-107) mmol/L Carbon Dioxide 30 (22-32) mmol/L BUN 23 H (7-17) mg/dL Creatinine 0.66 (0.52-1.04) mg/dL Estimated GFR > 60 (>60) mL/min BUN/Creatinine Ratio 34.8 H (6-22) Glucose 104 (80-110) mg/dL Calcium 9.1 (8.4-10.2) mg/dL Magnesium 2.2 (1.6-2.3) mg/dL Total Bilirubin 0.4 (0.2-1.3) mg/dL AST 28 (14-36) IU/L ALT 23 (<35) IU/L Alkaline Phosphatase 86 (38-126) U/L Total Creatine Kinase 74 (30-135) U/L Troponin I < 0.012 (0.01-0.034) ng/mL Total Protein 6.8 (6.3-8.2) g/dL Albumin 4.0 (3.5-5.0) g/dL Globulin 2.8 (1.7-4.1) g/dL Albumin/Globulin Ratio 1.4 (1.0-2.8) Lipase 62 (23-300) U/L Discharge Plan Departure Prescriptions: No Action atorvastatin 10 mg tablet 10 mg PO DAILY alendronate 10 mg tablet 10 mg PO DAILY [CALCIUM] Qty: 0 [VITAMIN D] Qty: 0 Fish Oil (#SALMON OIL) 1,000 mg PO EVERY OTHER DAY Qty: 0 FOLIC ACID/VIT A/VIT B1/VIT (#MULTIVITAMIN) 1 tab PO Q DAY Qty: 0 Referrals: Jacoby Jamison MD [Primary Care Provider] -
--- NOTE | 2023-04-02 10:30 | ED.FALL ---
HPI - Fall General Chief Complaint: Syncope Stated Complaint: sent by [facility], fall T-1 shoulder injury, fainting Time Seen by Provider: 04/02/23 10:06 Source: patient and family Mode of arrival: Ambulatory History of Present Illness HPI Narrative: Patient is sent here from walk-in clinic for pain/injury to the right shoulder/nausea/dizziness. Patient here with . Patient has been seen by primary care Dr. Jacoby Jamison yesterday for syncopal episodes that lasted less than 30 seconds, 3 times in the past 1 year. He is going to set her up for carotid Doppler. Patient had Zio patch done in the last year for this same complaints of dizziness and syncope and it was reviewed and few episodes of SVT. Otherwise normal study. Patient and state last night they were eating dinner, she had 2 glasses of wine which is not unusual. She got up and had no problems washing the dishes. About 30 minutes later she lost her balance and broke most of the fall but she did hit her right shoulder against the refrigerator. No loss of consciousness. Denies hitting her head. Shortly afterwards she was nauseous and dizzy. She does not recall this episode. However states that is not uncommon as she does have problems with short-term memory. There was no seizure activity. No recent illness no nausea vomiting diarrhea prior to this. No black or bloody stools. No recent illness. No chest pain or palpitations. No headache. When she fell, states, originally she was crying and then she was giggling and laughing Related Data Home Medications Medication Instructions Recorded Confirmed [CALCIUM] ##0 10/17/10 10/31/20 [VITAMIN D] ##0 10/17/10 10/31/20 FOLIC ACID/VIT A/VIT B1/VIT 1 tab PO Q DAY ##0 05/13/11 10/31/20 (#MULTIVITAMIN) Fish Oil (#SALMON OIL) 1,000 mg PO EVERY OTHER DAY ##0 05/13/11 10/31/20 alendronate 10 mg tablet 10 mg PO DAILY 01/28/18 10/31/20 atorvastatin 10 mg tablet 10 mg PO DAILY 01/28/18 10/31/20 Allergies Allergy/AdvReac Type Severity Reaction Status Date / Time codeine [CODEINE] Allergy Severe THROAT Verified 06/02/21 18:13 SWELLING Review of Systems Review of Systems Narrative: GENERAL: negative chills, fatigue, malaise, fever, sweats. HEENT: negative sinus pain, ear pain, sore throat RESPIRATORY: negative dyspnea, cough CARDIOVASCULAR: negative chest pain, palpitations GASTROINTESTINAL: Positive nausea, negative vomiting, abdominal pain : negative dysuria, frequency, hematuria MUSCULOSKELETAL: Because muscle or bony pain SKIN: negative rash, skin lesions NEUROLOGIC: negative weakness, numbness, positive dizzy ROS Unobtainable: All systems reviewed & are unremarkable except as noted in HPI and below Patient History Medical History Hyperlipidemia Social History Smoking Status: Never smoker Smoking Status: Never smoker alcohol intake frequency: 0-2 drinks per day Alcohol type: wine Substance Use Type: does not use Exam Narrative Exam Narrative: GENERAL: in no distress, not toxic not dyspneic HEAD: Normocephalic. Nontender scalp and skull and face. No skin injury or bruising seen EYES: Pupils equal round ENT: Mucous membranes moist. NECK: Trachea midline. No midline tenderness or step-off of the cervical thoracic or lumbar spine, no carotid bruit CARDIOVASCULAR: Regular rate and rhythm RESPIRATORY: Clear to auscultation. Breath sounds equal bilaterally. No wheezes, rales, or rhonchi. GASTROINTESTINAL: Abdomen soft, non-tender EXTREMITIES: No gross deformities. Examination right upper extremity mild tenderness posterior shoulder with small bruise. However able to bring hand above her head and cross midline and touch her left shoulder. Strong therapeutic support staff and radial pulse and light touch and 2 fingers and thumb, brisk cap refills BACK: No flank tenderness. NEURO: Patient awake alert oriented x3, does not remember the event. Clear speech no facial droop fast exam is negative. 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 Negative pronator drift. SKIN: Warm and dry PSYCH: Not anxious, is cooperative Initial Vital Signs Initial Vital Signs: Vital Signs Temperature 97.2 F L 04/02/23 09:37 Pulse Rate 80 04/02/23 09:37 Respiratory Rate 18 04/02/23 09:37 Blood Pressure 177/77 H 04/02/23 09:37 Pulse Oximetry 98 04/02/23 09:37 Oxygen Delivery Method Room Air 04/02/23 09:37 Course Orders Ordered: Discontinued Medications Aspirin (Aspirin 81 Mg Chew Tab) 324 mg PO NOW ONE Stop: 04/02/23 09:33 Last Admin: 04/02/23 10:46 Dose: Not Given Documented By: LAYNE Sodium Chloride (Normal Saline 0.9%) 500 mls @ 1,000 mls/hr IV BOLUS ONE Stop: 04/02/23 11:06 Last Infusion: 04/02/23 11:23 Dose: Infused Documented By: Admin: 04/02/23 10:45 Dose: 1,000 mls/hr Documented By: LAYNE Vital Signs Vital signs: Vital Signs - 8 hr 04/02/23 09:37 04/02/23 12:28 Temperature 97.2 F L Pulse Rate 80 68 Respiratory Rate 18 16 Blood Pressure 177/77 H 145/95 H Pulse Oximetry 98 98 Oxygen Delivery Method Room Air Room Air MDM - Fall Lab Data 04/02/23 09:46 04/02/23 09:46 Labs: Lab Results 04/02/23 Range/Units 09:46 WBC 9.6 (4.5-11.0) X10^3/uL RBC 4.52 (4.0-5.2) X10^6/uL Hgb 14.8 (12.0-16.0) g/dL Hct 44.1 (36-46) % MCV 97.4 (80-100) fL MCH 32.7 (26-34) PG MCHC 33.6 (30-36) % RDW 14.0 (11.6-14.8) % Plt Count 290 (150-400) X10^3/uL Neut % (Auto) 82.0 H (50-75) % Lymph % (Auto) 9.8 L (25-40) % Valencia % (Auto) 7.2 (3-14) % Eos % (Auto) 0.4 L (2-4) % Baso % (Auto) 0.6 (0-2) % Neut # (Auto) 7900 H (3352-7691) /uL Lymph # (Auto) 900 L (5736-9721) /uL Valencia # (Auto) 700 (0-900) /uL Eos # (Auto) 0 (0-450) /uL Baso # (Auto) 100 (0-100) /uL PT 11.1 (10.1-12.7) SECONDS INR 1.0 (0.9-1.3) APTT 30 (26-36) SECONDS Sodium 137 (137-145) mmol/L Potassium 4.6 (3.4-5.1) mmol/L Chloride 101 (98-107) mmol/L Carbon Dioxide 30 (22-32) mmol/L BUN 23 H (7-17) mg/dL Creatinine 0.66 (0.52-1.04) mg/dL Estimated GFR > 60 (>60) mL/min BUN/Creatinine Ratio 34.8 H (6-22) Glucose 104 (80-110) mg/dL Calcium 9.1 (8.4-10.2) mg/dL Magnesium 2.2 (1.6-2.3) mg/dL Total Bilirubin 0.4 (0.2-1.3) mg/dL AST 28 (14-36) IU/L ALT 23 (<35) IU/L Alkaline Phosphatase 86 (38-126) U/L Total Creatine Kinase 74 (30-135) U/L Troponin I < 0.012 (0.01-0.034) ng/mL Total Protein 6.8 (6.3-8.2) g/dL Albumin 4.0 (3.5-5.0) g/dL Globulin 2.8 (1.7-4.1) g/dL Albumin/Globulin Ratio 1.4 (1.0-2.8) Lipase 62 (23-300) U/L Imaging Data Chest x-ray: Radiologist's Impression: [address] [address] XRay Report Signed Patient: Ania Dupree MR#: [id number] : 1945 Acct:[id number] Age/Sex: 77 / F Date of Service: 04/02/23 Loc: ED Accession Number: [id number] Procedure: XR chest 1V Ordering Provider: Albaro Keller MD PROCEDURE: XR CHEST 1V INDICATIONS: chest pain TECHNIQUE: One view of the chest was acquired. COMPARISON: [facility], CR, XR CHEST 2V, 08/11/2019, 21:18. FINDINGS: Surgical changes and devices: None. Lungs and pleura: Minimal appearance of increased vascularity. Mediastinum: Mediastinal contours appear normal. Heart size is normal. Bones and chest wall: No suspicious bony lesions. Overlying soft tissues appear unremarkable. IMPRESSION: Minimal increased vascularity suggestive of edema. Dictated by: Nubia Gould M.D. on 04/02/2023 at 11:12 Approved by: Nubia Gould M.D. on 04/02/2023 at 11:12 CT scan - head: Radiologist's Impression: [address] [address] [address] Scan Report Signed Patient: Ania Dupree MR#: [id number] : 1945 Acct:[id number] Age/Sex: 77 / F Date of Service: 04/02/23 Loc: ED Accession Number: [id number] Procedure: CT head/brain wo con Ordering Provider: Albaro Keller MD PROCEDURE: CT HEAD/BRAIN WO CON INDICATIONS: syncope, dizziness, dementia TECHNIQUE: Noncontrast 4.5 mm thick angled axial sections acquired from the foramen magnum to the vertex, with coronal and sagittal reformats. For radiation dose reduction, the following was used: automated exposure control, adjustment of mA and/or kV according to patient size. COMPARISON: MR, MR HEAD/BRAIN WO/W CON, 09/11/2021, 12:24. [facility], CT, CT ANGIO HEAD AND NECK, 04/02/2023, 10:16. FINDINGS: Image quality: Excellent. CSF spaces: Basal cisterns are patent. No extra-axial fluid collections. The ventricles are symmetric in size and shape. Brain: No intracranial bleeds or masses. Low-attenuation bilateral subdural fluid collections are present slightly more prominent on the right. These are unchanged compared to prior exam and consistent with chronic subdural hygromas. No acute hemorrhage. There is cerebral volume loss for age, with resultant ventricular and sulcal prominence. There are periventricular and deep white matter chronic small vessel ischemic changes. There is intracranial internal carotid artery atherosclerosis. Skull and face: Calvarium and visualized facial bones appear intact, without suspicious lesions. Sinuses: Visualized sinuses and mastoids are clear. IMPRESSION: 1. No acute intracranial process. 2. Moderate atrophy and chronic microvascular ischemic changes. Dictated by: Nubia Gould M.D. on 04/02/2023 at 11:09 Approved by: Nubia Gould M.D. on 04/02/2023 at 11:12 CT - cervical spine: Radiologist's Impression: [address] [address] [address] Scan Report Signed Patient: Ania Dupree MR#: [id number] : 1945 Acct:[id number] Age/Sex: 77 / F Date of Service: 04/02/23 Loc: ED Accession Number: [id number] Procedure: CT cervical spine wo con Ordering Provider: Albaro Keller MD PROCEDURE: CT CERVICAL SPINE WO CON INDICATIONS: Fall/injury TECHNIQUE: Noncontrast 3 mm thick sections acquired from the skull base to the T4 level. Sagittal and coronal reformats were then constructed. For radiation dose reduction, the following was used: automated exposure control, adjustment of mA and/or kV according to patient size. COMPARISON: None. FINDINGS: Image quality: Excellent. Bones: No fractures or dislocations. Visualized superior ribs are intact. Multilevel degenerative changes. Soft tissues: Prevertebral soft tissues are normal in thickness. No paravertebral hematomas. No apical pneumothoraces. IMPRESSION: No visualized fracture. Dictated by: Nubia Gould M.D. on 04/02/2023 at 11:13 Approved by: Nubia Gould M.D. on 04/02/2023 at 11:15 CTA - brain/neck: Radiologist's Impression: [address] [address] [address] Scan Report Signed Patient: Ania Dupree MR#: [id number] : 1945 Acct:[id number] Age/Sex: 77 / F Date of Service: 04/02/23 Loc: ED Accession Number: [id number] Procedure: CT angio head and neck Ordering Provider: Albaro Keller MD PROCEDURE: CT ANGIO HEAD AND NECK INDICATIONS: syncope, dizziness, dementia TECHNIQUE: After the administration of intravenous contrast, 1 mm thick sections acquired from the aortic arch through the [place] of [place]. 3-dimensional pdczaaz-nmmijmmsq-zezztyokjo (MIP) and/or volume rendering reformats were acquired of the central intracranial vasculature and neck separately. For radiation dose reduction, the following was used: automated exposure control, adjustment of mA and/or kV according to patient size. COMPARISON: [facility], CT, CT HEAD/BRAIN WO CON, 04/02/2023, 10:16. FINDINGS: Image quality: Diagnostic. BRAIN: Please see separately dictated CT brain report of 04/02/2023. HEAD CT ANGIOGRAPHY: Anterior circulation: Intracranial internal carotid arteries are normal in size and flow. The flow within the paired anterior cerebral arteries is normal and symmetric. The flow within the middle cerebral arteries is normal and symmetric. The anterior communicating artery is seen. No aneurysms are seen. Posterior circulation: There is a slight right vertebral artery dominance. Visualized portions of the vertebral arteries demonstrate normal caliber, and join to form a normal appearing basilar artery. Flow within the posterior cerebral arteries is normal and symmetric. No aneurysms are seen. NECK CT ANGIOGRAPHY: Carotid system: The great vessels demonstrate a conventional anatomy as they arise from the aortic arch. The origins of the common carotid arteries appear patent. The common carotid arteries demonstrate normal caliber and courses. The bifurcation regions are both widely patent. The internal carotid arteries demonstrate normal calibers and courses. Posterior circulation: The origins of the vertebral arteries both appear widely patent. The more superior extracranial portions of both vertebral arteries also demonstrate normal courses and calibers. They join to form a normal appearing basilar artery. Soft tissues: Low-attenuation foci are present within the thyroid bilaterally. No priors are available for comparison. Bones: No suspicious bony lesions. Visualized cervical spine appears normally aligned. IMPRESSION: No areas of hemodynamically significant stenosis, vascular occlusion or aneurysmal dilation within the anterior circulation. No areas of hemodynamically significant stenosis, vascular occlusion or aneurysmal dilation within the posterior circulation. No areas of hemodynamically significant stenosis, vascular occlusion or aneurysmal dilation within the neck vasculature. Low-attenuation thyroid ultrasound foci without priors for comparison. Thyroid ultrasound may be obtained on a nonemergent basis for further evaluation as clinically indicated. Any quantitative measurements of stenosis were performed using NASCET criteria. Dictated by: Nubia Gould M.D. on 04/02/2023 at 11:16 Approved by: Nubia Gould M.D. on 04/02/2023 at 11:23 Extremity x-ray #1: Radiologist's Impression: [address] [address] XRay Report Signed Patient: Ania Dupree MR#: [id number] : 1945 Acct:[id number] Age/Sex: 77 / F Date of Service: 04/02/23 Loc: ED Accession Number: [id number] Procedure: XR shoulder RT min 2V Ordering Provider: Albaro Keller MD PROCEDURE: XR SHOULDER RT MIN 2V INDICATIONS: fall, right shoulder pain TECHNIQUE: 3 views of the shoulder were acquired. COMPARISON: None. FINDINGS: Bones: No fractures or dislocations. No suspicious bony lesions. Visualized ribs appear intact. Soft tissues: No suspicious soft tissue calcifications. IMPRESSION: No visualized acute fracture or dislocation. However, if clinical concern and/or pain persist, short interval imaging followup in 7-10 days is recommended, as occult injury cannot be definitively excluded. Dictated by: Nubia Gould M.D. on 04/02/2023 at 11:13 Approved by: Nubia Gould M.D. on 04/02/2023 at 11:13 [facility] Narrative Medical decision making narrative: Patient is sent here from walk-in clinic for pain/injury to the right shoulder/nausea/dizziness. Patient here with . Patient has been seen by primary care Dr. Jacoby Jamison yesterday for syncopal episodes that lasted less than 30 seconds, 3 times in the past 1 year. He is going to set her up for carotid Doppler. Patient had Zio patch done in the last year for this same complaints of dizziness and syncope and it was reviewed and few episodes of SVT. Otherwise normal study. Patient and state last night they were eating dinner, she had 2 glasses of wine which is not unusual. She got up and had no problems washing the dishes. About 30 minutes later she lost her balance and broke most of the fall but she did hit her right shoulder against the refrigerator. No loss of consciousness. Denies hitting her head. Shortly afterwards she was nauseous and dizzy. She does not recall this episode. However states that is not uncommon as she does have problems with short-term memory. There was no seizure activity. No recent illness no nausea vomiting diarrhea prior to this. No black or bloody stools. No recent illness. No chest pain or palpitations. No headache. When she fell, states, originally she was crying and then she was giggling and laughing After history and exam CBC CMP EKG CT head CT angiogram head and neck x-ray right shoulder normal saline magnesium troponin CT cervical spine [facility] CC: Fall/shoulder pain Complicating co-morbidities: History of syncope Data collected from: Patient and Medical records reviewed: Walk-in clinic note just prior to arrival Differential considered: Includes but not limited to arrhythmia cardiac valvular disease dehydration alcohol intoxication dehydration Exam documented above, pertinent findings include: Shoulder bruising Lab Test results independently reviewed as above. Pertinent findings: WBC 9.6 hemoglobin 14.8 INR 1.0 sodium 137 potassium 4.6 BUN 23 creatinine 0.66 GFR greater than 60 AST 28 ALT 23 troponin less than 0.012 Independently reviewed EKG normal sinus rhythm normal EKG rate [address] elevation or depression Imaging studies independently reviewed: Chest x-ray no acute finding CT head no acute finding CT angio head and neck no acute finding CT cervical spine no acute finding Consultations: 12:22 p.m.. Spoke primary care on-call for dr jamison, I spoke with Dr. Brunson, patient does not need to be admitted today. She can be followed up closely this week with the office. They will add any blood test to the blood that is in the lab today. Patient does not need to have carotid Dopplers done as CT angiogram was done today and is reassuring. No addition medications needed. Treatments: Normal saline Re-evaluations: .. 12:24 p.m. Updated patient and results. At this time they are reassuring. Laboratory studies and imaging are reassuring. Patient asymptomatic at this time. Her source of losing balance yesterday uncertain. She had no prevent symptoms. Likely not due to alcohol consumption. Return precautions reviewed with patient. Nontoxic at discharge. I did review with primary care on-call regarding any additional tests or follow up. Return precautions were reviewed with patient and . Not toxic at discharge. They desire discharge home Discussion: Appropriate for discharge home. Exam and laboratory studies and imaging are reassuring. I did review with primary care on-call for any further testing or laboratory studies or changes in disposition. He would like patient to be discharged home and follow up with Dr. Jamison. Any laboratory studies or imaging will be further managed by the office setting. Diagnosis: Fall Discharge Plan Departure Patient Disposition: Home Clinical Impression: Fall Qualifiers: Encounter type: initial encounter Qualified Code(s): W19.XXXA - Unspecified fall, initial encounter Contusion of right shoulder Qualifiers: Encounter type: initial encounter Qualified Code(s): S40.011A - Contusion of right shoulder, initial encounter Instructions: Exercises to Help Prevent Falls, DI for Contusion Activity Restrictions/Additional Instructions: See your family doctor as scheduled. Today's laboratory studies and radiographs and CT scans and x-rays are reassuring. Dr Brunson was on-call and will communicate today's visit and findings with your primary care regarding to add any laboratory studies in the blood collection we have already. Please call the office and confirmed about any need for carotid Doppler of your neck. Return if worse if any questions or concerns. Prescriptions: No Action atorvastatin 10 mg tablet 10 mg PO DAILY alendronate 10 mg tablet 10 mg PO DAILY [CALCIUM] Qty: 0 [VITAMIN D] Qty: 0 Fish Oil (#SALMON OIL) 1,000 mg PO EVERY OTHER DAY Qty: 0 FOLIC ACID/VIT A/VIT B1/VIT (#MULTIVITAMIN) 1 tab PO Q DAY Qty: 0 Referrals: Jacoby Jamison MD [Primary Care Provider] - Stand Alone Forms: Patient Portal/API
[2023-04-02] MEDS: SODIUM CHLORIDE 0.9% 500 ML 1000 ML IV (10:45)
[2023-04-02 12:28] VITALS: BP 145/95; PULSE 68; RESP 16; O2SAT 98
== END 2023-04-02 12:32 | disposition home or self-care (01) ==
PROVIDERS: Emergency Provider Emergency Medicine; Family Provider Family Medicine; PCP Family Medicine
DX: S40.011A Contusion of right shoulder, initial encounter (principal); R11.0 Nausea; R07.9 Chest pain, unspecified; W19.XXXA Unspecified fall, initial encounter; F03.90 Unspecified dementia, unspecified severity, without behavioral disturbance, psychotic disturbance, mood disturbance, and anxiety
CPT/HCPCS: 36415; 70450; 70496; 70498; 71045; 72125; 73030; 80053; 82550; 83690; 83735; 84484; 85025; 85610; 85730; 93005; 96360; 99284; Q9967

== ENCOUNTER → 2023-04-06 15:09 | Outpatient (CLI) | payer MEDICARE, OTHER, SELFPAY ==
--- NOTE | 2023-04-06 15:12 | DI.US.S_ITS ---
PROCEDURE: US CAROTID DOPPLER BI INDICATIONS: SYNCOPE TECHNIQUE: Color and pulse Doppler interrogation was performed of both carotid systems, with image documentation and velocity measurements. COMPARISON: None. FINDINGS: Stenosis calculations are based on SRU (Society of Radiologists in Ultrasound) criteria. Right side: Brachial blood pressure: Unable to tolerate due to injury from fall Common carotid artery peak systolic velocity: 51 cm/sec. Internal carotid artery peak systolic velocity: 77 cm/sec. Internal carotid artery end diastolic velocity: 26 cm/sec. External carotid artery peak systolic velocity: 61 cm/sec. ICA/CCA peak systolic ratio: 1.49. Rubio scale imaging description: Mild plaque at the carotid bulb. Percent internal carotid artery stenosis: Less than 50% stenosis Vertebral artery: Flow direction is antegrade. Left side: Brachial blood pressure: 159/99 mm Hg. Common carotid artery peak systolic velocity: 63 cm/sec. Internal carotid artery peak systolic velocity: 78 cm/sec. Internal carotid artery end diastolic velocity: 29 cm/sec. External carotid artery peak systolic velocity: 63 cm/sec. ICA/CCA peak systolic ratio: 1.2 to . Rubio scale imaging description: Minimal scattered plaque. Percent internal carotid artery stenosis: Less than 50% Vertebral artery: Flow direction is antegrade. IMPRESSION: Less than 50% stenosis in the bilateral internal carotid arteries. Dictated by: Gunjan Jaeger M.D. on 04/06/2023 at 18:42 Approved by: Gunjan Jaeger M.D. on 04/06/2023 at 18:46
== END ==
PROVIDERS: Family Provider Family Medicine; PCP Family Medicine; Referring Provider Family Medicine; Visit Provider Family Medicine
DX: I65.23 Occlusion and stenosis of bilateral carotid arteries (principal); R55 Syncope and collapse
CPT/HCPCS: 93880

== ENCOUNTER → 2023-05-07 09:23 | Outpatient (CLI) | payer MEDICARE, OTHER, SELFPAY ==
--- NOTE | 2023-05-07 | DI.ECHO.S_ITS ---
[place] [facility]---------[facility] +---------+ : : [address] : : : : [id number] : : : : Phone: [phone]+ Echocardiogram Report + + :Name: GAURAV SANTANA Study Date: 05/07/2023 Height: 62 in : :[facility] ReadingLocation: Weight: 140 lb : : Gender: Female BSA: 1.6 m2 : :: 1945 Age: 77 yrs BP: 152/85 mmHg: :Reason For Study: SYNCOPE : :Ordering Physician: CLARE, : :GABRIEL Performed By: Shalonda Seaman : :Referring: GABRIEL SPARKS : + + Interpretation Summary The left ventricle is normal in size and wall thickness. Left ventricular systolic function appears normal without focal wall motion abnormalities. The ejection fraction is estimated to be 60-65%. Diastolic parameters suggest a relaxation abnormality of the left ventricle, consistent with probable normal filling pressures. The right ventricle is normal in size and function. The right ventricular systolic pressure is estimated to be at least 27 mmHg based on an estimated right atrial pressure of 3 mm Hg. The left atrial size is normal. Right atrial size is normal. There is no significant valvular heart disease. The aortic root is normal size. Procedure: A two-dimensional transthoracic echocardiogram with color flow and Doppler was performed. The study quality was technically adequate. Comparison is made with the echocardiogram of 11/11/2021. The patient was in sinus rhythm with heart rates between 69-76 bpm during the exam. Left Ventricle: The left ventricle is normal in size and wall thickness. Left ventricular systolic function appears normal without focal wall motion abnormalities. The ejection fraction is estimated to be 60-65%. Diastolic parameters suggest a relaxation abnormality of the left ventricle, consistent with probable normal filling pressures. Right Ventricle: The right ventricle is normal in size and function. Atria: The left atrial size is normal. Right atrial size is normal. There is no Doppler evidence for an interatrial shunt. Mitral Valve: The mitral valve is normal in structure and function. There is trace mitral regurgitation. Aortic Valve: The aortic valve is trileaflet. The aortic valve opens well. There is no aortic valve stenosis. No aortic regurgitation is present. Tricuspid Valve: The tricuspid valve is normal in structure and function. There is mild tricuspid regurgitation. The right ventricular systolic pressure is estimated to be at least 27 mmHg based on an estimated right atrial pressure of 3 mm Hg. Pulmonic Valve: The pulmonic valve leaflets are thin and pliable; valve motion is normal. There is trace pulmonic regurgitation. There is no significant valvular heart disease. Great Vessels: The aortic root is normal size. The dimensions of the ascending aorta are normal. The IVC is of normal diameter and collapses greater than 50% with a sniff. This suggests a low right atrial pressure of 3 mm Hg. Pericardium/ Pleura There is no pericardial effusion. There is no pleural effusion. MMode/2D Measurements & Calculations LVIDd: 5.3 cm LVOT diam: 2.1 cm LVIDs: 3.3 cm Ao root diam: 3.5 cm FS: 37.8 % asc Aorta Diam: 3.2 cm EPSS: 1.2 cm Ao Arch Diam (Prox Trans): 3.3 cm IVSd: 0.65 cm LVPWd: 0.67 cm LV bone. diameter/BSA (cm/m^2): 3.2 LV sys. diameter/BSA (cm/m^2): 2.0 LA A2 area: 15.3 cm2 RA long axis: 4.4 cm LA A4 area: 17.1 cm2 RA area: 12.0 cm2 LA length (vol): 4.6 cm RA vol: 28.0 ml LA vol: 48.3 ml RA : 17.0 ml/m2 LA vol index: 29.4 ml/m2 IVC diam: 0.91 cm RVD1 (basal): 3.5 cm RVD2 (mid): 2.3 cm TAPSE: 2.4 cm Doppler Measurements & Calculations Ao V2 max: 106.4 cm/sec LVOT Max Alex: 83.9 cm/sec Ao V2 mean: 78.9 cm/sec LV V1 max P.8 mmHg Ao max P.5 mmHg LV V1 VTI: 14.7 cm Ao mean P.7 mmHg BLANCA(I,D): 2.5 cm2 Ao V2 VTI: 21.3 cm BLANCA(V,D): 2.8 cm2 sev ratio: 0.69 BLANCA indexed to BSA (cm^2/m^2): 1.5 MV E max alex: 43.0 cm/sec TR max alex: 246.1 cm/sec MV A max alex: 89.5 cm/sec TR max P.2 mmHg MV E/A: 0.48 PA V2 max: 89.7 cm/sec Med Peak E' Alex: 4.4 cm/sec PA V2 mean: 69.5 cm/sec E/E' med: 9.7 PA mean P.0 mmHg Lat Peak E' Alex: 4.8 cm/sec PA pr(Accel): 53.3 mmHg E/E' lat: 9.0 E/e' average: 9.4 MV dec time: 0.29 sec SV(LVOT): 52.3 ml Reading Physician:03:34 PM
== END ==
PROVIDERS: Family Provider Family Medicine; PCP Family Medicine; Referring Provider Family Medicine; Visit Provider Family Medicine
DX: I07.1 Rheumatic tricuspid insufficiency (principal); R55 Syncope and collapse
CPT/HCPCS: 93306

== ENCOUNTER → 2023-06-13 09:37 | Outpatient (CLI) | payer MEDICARE, OTHER, SELFPAY ==
--- NOTE | 2023-06-13 | DI.MG.S_ITS ---
BILATERAL DIGITAL SCREENING MAMMOGRAM 3D/2D WITH CAD: 06/13/2023 CLINICAL: Routine screening. Family history of breast cancer. Comparison is made to exams dated: 06/18/2022 mammogram, 05/06/2022 mammogram, 04/17/2021 mammogram, and 04/14/2020 mammogram - [facility]. Both breasts are heterogeneously dense, which may obscure small masses (category c / 51-75% glandular tissue). Current study was also evaluated with a Computer Aided Detection (CAD) system. No significant masses, calcifications, or other findings are seen in either breast. There has been no significant interval change. IMPRESSION: NEGATIVE There is no mammographic evidence of malignancy. A 1 year screening mammogram is recommended. Based on the Tyrer Cuzick model (a risk assessment model) the patient's lifetime risk is 6.2% and her 10 year risk is 6.2%. According to the ACR, ACS, and NCCN guidelines, an annual breast MRI exam along with mammogram is recommended if the patient's lifetime risk is 20% or greater. This exam was interpreted at Station ID: [id number]. NOTE: For mammograms, a report in lay terms will be sent to the patient. Approximately 15% of breast malignancies will not be visualized mammographically. In the management of a palpable breast mass, a negative mammogram must not discourage biopsy of a clinically suspicious lesion. Electronically Signed By: Scott infante/raiza:06/16/2023 08:27:36 letter sent: Normal Exam ACR BI-RADS Category 1: Negative [id number]
== END ==
LOC: MAMMO 09:37
PROVIDERS: Family Provider Family Medicine; PCP Family Medicine; Referring Provider Family Medicine; Visit Provider Family Medicine
DX: Z12.31 Encounter for screening mammogram for malignant neoplasm of breast (principal); Z80.3 Family history of malignant neoplasm of breast; R92.333 Mammographic heterogeneous density, bilateral breasts
CPT/HCPCS: 77063; 77067

== ENCOUNTER → 2024-06-30 08:06 | Outpatient (CLI) | payer MEDICARE, OTHER, SELFPAY ==
--- NOTE | 2024-06-30 08:07 | DI.MG.S_ITS ---
BILATERAL DIGITAL SCREENING MAMMOGRAM 3D/2D WITH CAD: 06/30/2024 CLINICAL: Routine screening. Family history of breast cancer. Comparison is made to exams dated: 06/13/2023 mammogram, 05/06/2022 mammogram, 04/17/2021 mammogram, and 06/18/2022 mammogram - [facility]. The breasts are heterogeneously dense, which may obscure small masses (category c / 51-75% glandular tissue). Current study was also evaluated with a Computer Aided Detection (CAD) system. No significant masses, calcifications, or other findings are seen in either breast. There has been no significant interval change. IMPRESSION: NEGATIVE There is no mammographic evidence of malignancy. A 1 year screening mammogram is recommended. Based on the Tyrer Cuzick model (a risk assessment model) the patient's lifetime risk is 5.7% and her 10 year risk is 0.0%. According to the ACR, ACS, and NCCN guidelines, an annual breast MRI exam along with mammogram is recommended if the patient's lifetime risk is 20% or greater. This exam was interpreted at Station ID: [id number]. NOTE: For mammograms, a report in lay terms will be sent to the patient. Approximately 15% of breast malignancies will not be visualized mammographically. In the management of a palpable breast mass, a negative mammogram must not discourage biopsy of a clinically suspicious lesion. Electronically Signed By: Kaz kennedy/raiza:06/30/2024 15:25:39 letter sent: Normal Exam ACR BI-RADS Category 1: Negative
== END ==
PROVIDERS: Family Provider Family Medicine; PCP Family Medicine; Referring Provider Family Medicine; Visit Provider Family Medicine
DX: Z12.31 Encounter for screening mammogram for malignant neoplasm of breast (principal); Z80.3 Family history of malignant neoplasm of breast; R92.333 Mammographic heterogeneous density, bilateral breasts
CPT/HCPCS: 77063; 77067

== ENCOUNTER → 2024-10-28 13:19 | Outpatient (CLI) | payer MEDICARE, OTHER, SELFPAY ==
--- NOTE | 2024-10-28 13:28 | DI.RAD.S_ITS ---
PROCEDURE: XR SHOULDER RT MIN 2V INDICATIONS: RIGHT SHOULDER PAIN TECHNIQUE: 3 views of the shoulder were acquired. COMPARISON: [facility], CR, XR SHOULDER RT MIN 2V, 04/02/2023, 10:10. FINDINGS: Bones: No fractures or dislocations. No suspicious bony lesions. Mild degenerative changes. Visualized ribs appear intact. Soft tissues: No suspicious soft tissue calcifications. IMPRESSION: No acute bony abnormality. Mild degenerative changes seen. Consider MRI for further evaluation. Dictated by: Jony Canada M.D. on 10/29/2024 at 17:48 Approved by: Jony Canada M.D. on 10/29/2024 at 17:51
== END ==
PROVIDERS: Family Provider Family Medicine; PCP Family Medicine; Referring Provider Family Medicine; Visit Provider Family Medicine
DX: M75.81 Other shoulder lesions, right shoulder (principal); M75.21 Bicipital tendinitis, right shoulder
CPT/HCPCS: 73030

== ENCOUNTER 2025-03-07 18:49 | Emergency (ER) | payer MEDICARE, OTHER, SELFPAY ==
[2025-03-07 19:02] VITALS: BP 198/89; PULSE 67; RESP 18; TEMP 36.9; O2SAT 99; BMI 25.0
--- NOTE | 2025-03-07 21:25 | ED_ITS ---
HPI - Extremity Injury (Lower) General Chief Complaint: Extremity Injury, Lower Stated Complaint: right ankle injury Time Seen by Provider: 03/07/25 21:25 Source: patient Mode of arrival: Ambulatory History of Present Illness HPI Narrative: 79-year-old female patient with a history of dyslipidemia who complains of scraping her right lower leg on a metal railing while running today. Related Data Home Medications ?Medication ?Instructions ?Recorded ?Confirmed [CALCIUM] ##0 10/17/10 03/07/25 [VITAMIN D] ##0 10/17/10 03/07/25 FOLIC ACID/VIT A/VIT B1/VIT 1 tab PO Q DAY ##0 1 03/07/25 (#MULTIVITAMIN) Fish Oil (#SALMON OIL) 1,000 mg PO EVERY OTHER DAY ##0 05/13/11 03/07/25 atorvastatin 10 mg tablet 10 mg PO DAILY 01/28/1812/23 galantamine 4 mg tablet mg PO 03/07/25 03/07/25 Allergies Allergy/AdvReac Type Severity Reaction Status Date / Time codeine (CODEINE) Allergy Severe THROAT Verified 03/07/25 19:03 SWELLING Patient History Medical History Hyperlipidemia alcohol intake frequency: 0-2 drinks per day Alcohol type: wine Exam Initial Vital Signs Initial Vital Signs: Vital Signs Temperature 98.4 F 03/07/25 19:02 Pulse Rate 67 03/07/25 19:02 Respiratory Rate 18 03/07/25 19:02 Blood Pressure 198/89 H 03/07/25 19:02 Pulse Oximetry 99 03/07/25 19:02 Oxygen Delivery Method Room Air 03/07/25 19:02 Course Vital Signs Vital signs: Vital Signs - 8 hr 03/07/25 19:02 Temperature 98.4 F Pulse Rate 67 Respiratory Rate 18 Blood Pressure 198/89 H Pulse Oximetry 99 Oxygen Delivery Method Room Air Discharge Plan Departure Prescriptions: No Action atorvastatin 10 mg tablet 10 mg PO DAILY galantamine 4 mg tablet PO [CALCIUM] Qty: 0 [VITAMIN D] Qty: 0 Fish Oil (#SALMON OIL) 1,000 mg PO EVERY OTHER DAY Qty: 0 FOLIC ACID/VIT A/VIT B1/VIT (#MULTIVITAMIN) 1 tab PO Q DAY Qty: 0 Referrals: Jacoby Jamison MD [Primary Care Provider, [facility]]
--- NOTE | 2025-03-07 22:35 | PC.NURSE ---
Answered a call light, of patient quite upset, requesting that patient's leg be wrapped up because we're going and stating the wait time is disgraceful and that the patient's blood pressure keeps going up and up. Stated the provider said he would be back to stitch her up but never returned. Educated that d/t their distress any explanation offered would likely not make them feel better and spouse said you're damn right!. Requested that I wrap up her leg and cover it in antibiotics so she doesn't get an infection so they could leave. Educated that I could not do antibiotics without a doctors order but did wrap leg up with non-adherent dressing and kerlix.
--- NOTE | 2025-03-20 14:26 | ED.LOWEXIN ---
HPI - Extremity Injury (Lower) General Chief Complaint: Extremity Injury, Lower Stated Complaint: right ankle injury Time Seen by Provider: 03/07/25 21:25 Source: patient Mode of arrival: Ambulatory History of Present Illness HPI Narrative: 79-year-old female patient with a history of dyslipidemia who complains of a scraping laceration injury to the right lower leg from earlier today. Unknown last tetanus. Related Data Home Medications ?Medication ?Instructions ?Recorded ?Confirmed [CALCIUM] ##0 10/17/10 03/07/25 [VITAMIN D] ##0 10/17/10 03/07/25 FOLIC ACID/VIT A/VIT B1/VIT 1 tab PO Q DAY ##0 05/13/11 03/07/25 (#MULTIVITAMIN) Fish Oil (#SALMON OIL) 1,000 mg PO EVERY OTHER DAY ##0 05/13/11 03/07/25 atorvastatin 10 mg tablet 10 mg PO DAILY 01/28/18 03/07/25 galantamine 4 mg tablet mg PO 03/07/25 03/07/25 Allergies Allergy/AdvReac Type Severity Reaction Status Date / Time codeine (CODEINE) Allergy Severe THROAT Verified 03/07/25 19:03 SWELLING Review of Systems Review of Systems ROS Unobtainable: All systems reviewed & are unremarkable except as noted in HPI and below Musculoskeletal Musculoskeletal: Reports as per HPI Patient History Medical History Hyperlipidemia alcohol intake frequency: 0-2 drinks per day Alcohol type: wine Exam Narrative Exam Narrative: General: Alert and conversant. No distress. Appears well nourished and well hydrated Craniofacial: No evidence of trauma. Nontender and no swelling. Lungs: Clear to auscultation with good air movement. No wheezing, rales or rhonchi. No respiratory distress Abdomen: Soft, nontender with no distention or masses. Normal bowel sounds. No rebound or guarding Musculoskeletal: Patient has an abrasion and laceration combination of the lateral right leg measuring about 8 cm. Otherwise, Exam of the extremities, axial spine and ribcage reveals no deformity, bony tenderness or swelling. Range of motion intact Neuro: Alert and oriented. Cranial nerves, motor, sensory and cerebellar all grossly intact. No focal deficit Skin: Warm and normal color. No rashes Psychological: Normal affect and interaction. No evidence of delusion or psychosis. Normal mood. Initial Vital Signs Initial Vital Signs: Vital Signs Temperature 98.4 F 03/07/25 19:02 Pulse Rate 67 03/07/25 19:02 Respiratory Rate 18 03/07/25 19:02 Blood Pressure 198/89 H 03/07/25 19:02 Pulse Oximetry 99 03/07/25 19:02 Oxygen Delivery Method Room Air 03/07/25 19:02 Course Course Course Narrative: Patient and family member became him patient waiting for returned to repair the wound and left Against Medical Advice before the wound was repaired. Nurse put a dressing on the wound. Discharge Plan Departure Patient Disposition: Left Against Medical Advice Clinical Impression: Patient left without being seen, Laceration of leg not thigh, right Prescriptions: No Action atorvastatin 10 mg tablet 10 mg PO DAILY galantamine 4 mg tablet PO [CALCIUM] Qty: 0 [VITAMIN D] Qty: 0 Fish Oil (#SALMON OIL) 1,000 mg PO EVERY OTHER DAY Qty: 0 FOLIC ACID/VIT A/VIT B1/VIT (#MULTIVITAMIN) 1 tab PO Q DAY Qty: 0 Referrals: Jacoby Jamison MD [Primary Care Provider, Family Practice]
== END 2025-03-07 22:41 | disposition left against medical advice (07) ==
PROVIDERS: Emergency Provider Emergency Medicine; Family Provider Family Medicine; PCP Family Medicine
CPT/HCPCS: 99281